=== PATIENT | female | born 1985 | race Caucasian/White ===

== ENCOUNTER 2024-12-22 15:17 | Outpatient (CLI) | payer BC, SELFPAY ==
--- NOTE | ~2024-12-22 | MM_ITS ---
EXAMINATION: MM screening sarita BI w kaitlyn HISTORY: Screening TECHNIQUE: Craniocaudal and mediolateral oblique 3-D tomosynthesis images were obtained and synthetic 2-D images were generated. CAD analysis was submitted and interpreted. COMPARISON: No prior mammogram is available for comparison at institution. BREAST PARENCHYMAL COMPOSITION: Not dense: There are scattered areas of fibroglandular density. FINDINGS: There are multiple small mass located centrally and posteriorly in the left breast. There i s a small intramammary lymph node in the upper outer quadrant of the right breast posteriorly. There are no suspicious calcifications or architectural distortion. IMPRESSION: 1. Clustered small left breast masses located centrally and posteriorly. 2. Additional mammographic views and possible breast ultrasound are recommended. BI-RADS Category 0: Incomplete: Needs additional imaging evaluation. Reviewed, dictated and finalized at location B. PLATE LAYER IMPRESSION: 1. Clustered small left breast masses located centrally and posteriorly. 2. Additional mammographic views and possible breast ultrasound are recommended . BI-RADS Category 0: Incomplete: Needs additional imaging evaluation.
== END 2024-12-22 15:18 | disposition home or self-care (01) ==
LOC: MICIMG 15:19
PROVIDERS: PCP Obstetrics & Gynecology; Visit Provider Obstetrics & Gynecology
DX: Z12.31 Encounter for screening mammogram for malignant neoplasm of breast (principal); R92.8 Other abnormal and inconclusive findings on diagnostic imaging of breast
CPT/HCPCS: 77063; 77067

== ENCOUNTER 2025-01-09 10:07 | Outpatient (CLI) | payer BC, SELFPAY | END 2025-01-09 10:08 | disposition home or self-care (01) | PROVIDERS: PCP Obstetrics & Gynecology; Visit Provider Obstetrics & Gynecology | DX: N63.20 Unspecified lump in the left breast, unspecified quadrant (principal) | CPT/HCPCS: 76642; 77061; 77065; G0279 ==

== ENCOUNTER 2025-07-02 09:21 | Outpatient (CLI) | payer BC, SELFPAY ==
--- NOTE | ~2025-07-02 | MM_ITS ---
EXAMINATION: MM diagnostic sarita LT w kaitlyn INDICATION: 39-year old female; 6 month follow up of a mass with no sonographic correlate in the posterior central left breast at posterior third, initially evaluated on 01/09/2025. COMPARISON: 01/09/2025 and 12/22/2024. TECHNIQUE: Left breast Digital breast tomosynthesis CC and MLO views of the left breast were obtained with computer-aided detection to assist in interpretation of the study. FINDINGS: There are scattered areas of fibroglandular density. The circumscribed 0.4 cm low-density mass of concern in the posterior central left reidentified is Unchanged. No other focal dominant mass, architectural distortion, or suspicious microcalcifications are identified. IMPRESSION: Probably benign circumscribed mass in the posterior central left breast have demonstrated approximately 6 months stability since initial discovery. RECOMMEND: Diagnostic bilateral mammogram in 6 months. BI-RADS 3, PROBABLY BENIGN Reviewed, dictated and finalized at location B. IMPRESSION: Probably benign circumscribed mass in the posterior central left br east have demonstrated approximately 6 months stability since initial discovery . RECOMMEND: Diagnostic bilateral mammogram in 6 months. BI-RADS 3, PROBABLY BENIGN
== END 2025-07-02 09:22 | disposition home or self-care (01) ==
LOC: MICIMG 09:22
PROVIDERS: PCP Obstetrics & Gynecology; Visit Provider Obstetrics & Gynecology
DX: N63.20 Unspecified lump in the left breast, unspecified quadrant (principal)
CPT/HCPCS: 77061; 77065; G0279